=== PATIENT | female | born 1940 | race Caucasian/White ===

== ENCOUNTER 2018-04-16 08:25 | Outpatient (CLI) | payer OTHER | END 2018-04-16 08:29 | disposition home or self-care (01) | LOC: SONOGRAMA 08:25 | DX: E04.1 Nontoxic single thyroid nodule (principal) ==

== ENCOUNTER 2020-01-23 10:27 | Outpatient (CLI) | payer OTHER | END 2020-01-23 10:33 | disposition home or self-care (01) | LOC: SONOGRAMA 10:27 | PROVIDERS: ATTEND Pathology Anatomic Pathology & Clinical Pathology | DX: D34 Benign neoplasm of thyroid gland (principal); C73 Malignant neoplasm of thyroid gland; E07.89 Other specified disorders of thyroid; E04.1 Nontoxic single thyroid nodule; E04.8 Other specified nontoxic goiter ==